=== PATIENT | female | born 1930 | race Caucasian/White ===

== ENCOUNTER 2017-08-24 14:44 | Emergency (ER) | payer MEDICARE ==
[~2017-08-24] VITALS: Ht 152.4 cm; Wt 34.0 kg
--- NOTE | 2017-08-24 14:50 | NUR ---
AAOX3, BIBPA FROM [facility] C/O RIGHT SIDED FACE PAIN S/P GLF THIS AM, -KO. RR IS EVEN AND UNLABORED WITH NAD NOTED. SKIN IS WARM AND NON DIAPHORETIC. PLACED ON MONITOR AND HOSPITAL GOWN. AWAITING MD FOR EVAL.
[2017-08-24] MEDS ORDERED: ONDA4TAB5 PO (15:01)
[2017-08-24] MEDS ORDERED: PANT40TA2 PO (15:01)
[2017-08-24] MEDS ORDERED: CEPH500C2 PO (15:01)
[2017-08-24] MEDS ORDERED: CARV3.122 PO (15:01)
[2017-08-24] MEDS ORDERED: CLON0.1T PO (15:01)
[2017-08-24] MEDS ORDERED: GUAI-877 PO (15:01)
--- NOTE | 2017-08-24 15:14 | NUR ---
EKG INPROGRESS AT BEDSIDE
[2017-08-24 15:17] LABS: BASOPHILS # (AUTO) 0.3 /CMM (0.0-0.2); BASOPHILS % (AUTO) 3.2 % (0.0-2.0); EOSINOPHILS % (AUTO) 1.1 % (0.0-6.0); HEMATOCRIT 33 % (33-45); HEMOGLOBIN 11.1 g/dL (11.5-14.8); LYMPHOCYTES # (AUTO) 0.8 /CMM (0.8-4.8); LYMPHOCYTES % (AUTO) 10.3 % (20.0-44.0); MEAN CORPUSCULAR HGB CONC 34 g/dl (31.0-36.0); MEAN CORPUSCULAR VOLUME 90 fL (82-100); MONOCYTES # (AUTO) 0.4 /CMM (0.1-1.30); MONOCYTES % (AUTO) 4.6 % (2.0-12.0); NEUTROPHILS # (AUTO) 6.5 /CMM (1.8-8.9); NEUTROPHILS % (AUTO) 80.8 % (43.0-81.0); PLATELET COUNT (AUTO) 461 /CMM (150-450); RDW COEFFICIENT OF VARIATION 13.4 (11.5-15.0); RED BLOOD CELL COUNT(AUTO) 3.69 MIL/uL (4.0-5.2); WHITE BLOOD COUNT (AUTO) 8.1 K/uL (4.3-11.0)
--- NOTE | 2017-08-24 15:19 | NUR ---
PATIENT TRANSPORTED FOR CT OF THE HEAD
[2017-08-24 15:26] LABS: CALCIUM, SERUM 9.1 mg/dL (8.5-10.1); CARBON DIOXIDE 27 mmol/L (21-32); CHLORIDE 100 mmol/L (98-107); CREATININE 0.9 mg/dL (0.6-1.3); GLUCOSE 129 mg/dL (74-106); SODIUM SERUM 136 mmol/L (136-145); UREA NITROGEN, BLOOD 18 mg/dL (7-18)
[2017-08-24 15:31] LABS: INR 1.01 (0.85-1.15)
[2017-08-24 15:35] LABS: TROPONIN I < 0.017 ng/mL (0.00-0.056)
[2017-08-24 15:56] VITALS: BP 147/89
[2017-08-24 16:01] LABS: BAND % (MANUAL) 6 % (0.0-5.0); EOSINOPHILS % (MANUAL) 1 % (0-4); LYMPHOCYTES % (MANUAL) 5 % (16-48); MONOCYTES % (MANUAL) 5 % (0-11.0); NEUTROPHILS % (MANUAL) 83 (42-76)
== END 2017-08-24 15:58 | disposition home or self-care (01) ==
LOC: ER 14:48
DX: S00.03XA Contusion of scalp, initial encounter (principal); I10 Essential (primary) hypertension; W18.39XA Other fall on same level, initial encounter; Y93.89 Activity, other specified; Y92.89 Other specified places as the place of occurrence of the external cause; Y99.8 Other external cause status
CPT/HCPCS: 36415; 70450-TC; 71045-TC; 80048-TC; 84484-TC; 85025-TC; 85730-TC; A4606; Z7610